=== PATIENT | female | born 1940 | race Caucasian/White ===

== ENCOUNTER 2025-08-12 08:00 | Outpatient (RCR) | payer MEDICARE, MEDICAID, SELFPAY ==
[2025-08-05 08:45] VITALS: BP 121/102; PULSE 100; RESP 18; TEMP 37.3
--- NOTE | 2025-08-05 10:13 | RAD_ITS ---
PROCEDURE: TIBIA FIBULA 2 VIEWS 08/05/2025 REASON FOR EXAM: WOUND, TRAUMA TECHNIQUE: Procedure Code: RADTF Modality: DX Procedure: TIBIA FIBULA 2 VIEWS Laterality: FINDINGS: No evidence of acute fracture or dislocation. Degenerative changes of the knee and ankle. Diffuse soft tissue edema. RAD/Tibia & Fibula 2 Views IMPRESSION: No acute osseous abnormality. Diffuse edema. Reading Location: [id number]
--- NOTE | 2025-08-06 09:14 | HP.PCM_ITS ---
History of Present Illness Date of Service: 08/05/25 History of Wound: The patient is an 85-year-old female presenting with a wound on the left leg. The wound developed approximately three weeks ago following a fall, which was not initially associated with significant trauma. The patient reports increased swelling and redness in the area, with associated pain. The patient has a history of Chronic Obstructive Pulmonary Disease (COPD) and has been on oxygen intermittently for the past five years. She also has a history of a stroke, which occurred in 1996 due to high blood pressure. ROS: - Cardiovascular: Denies vascular problems requiring intervention - Musculoskeletal: Reports left leg pain and difficulty walking - Neurological: Reports history of stroke Attestation: Documentation on this patient encounter was supported using ambient scribe technology/ voice AI technology. The patient consented to recording for the purpose of documenting the encounter. Provider reviewed content of the generated note prior to signature. PFSH Home Medications ?Medication ?Instructions ?Recorded ?Last Taken ?Type Lactobacillus acidophilus 1 tab PO DAILY 08/05/25 Unkn own History (Acidophilus chewable tablet) albuterol sulfate 2.5 mg/3 mL 1 4X/DAY PRN PRN wheezin g 08/05/25 Unknown History (0.083 %) solution for nebulization albuterol sulfate 90 mcg/actuation inhalation 08/05/25 Unknown History aerosol inhaler alendronate 70 mg tablet 70 mg PO QWEEK 08/05/25 Unkn own History amlodipine 2.5 mg tablet 2.5 mg PO DAILY 08/05/25 Unk nown History aspirin 81 mg tablet,delayed 81 mg PO DAILY 08/05/25 U nknown History release (Adult Low Dose Aspirin) atorvastatin 10 mg tablet 10 mg PO DAILY 08/05/25 Unkn own History calcitriol 0.25 mcg capsule 0.25 mcg PO DAILY 08/05/25 Unknown History calcium carbonate (Antacid 400 mg PO DAILY 08/05/25 Un known History (calcium carbonate)) ciclopirox 8 % topical solution topical 08/05/25 Unkno wn History cranberry extract 500 mg capsule 500 mg PO DAILY 08/05 Unknown History (Cranberry Concentrate) docusate sodium 100 mg capsule 100 mg PO DAILY 5 Unknown History (Colace) doxycycline hyclate 100 mg capsule 100 mg PO BID 08/05 Unknown History empagliflozin 10 mg tablet 10 mg PO DAILY 08/05/25 Unk nown History (Jardiance) furosemide 40 mg tablet 40 mg PO BID 08/05/25 Unknow n History losartan 100 mg tablet 100 mg PO DAILY 08/05/25 Unk nown History metoprolol succinate 25 mg 25 mg PO DAILY 08/05/25 Unk nown History tablet,extended release 24 hr omega-3 fatty acids-fish oil 300 cap PO 08/05/25 Unkno wn History mg-500 mg capsule (Fish Oil) potassium gluconate 595 mg (99 mg) 595 mg PO TID 08/05 Unknown History tablet psyllium (Hydrocil oral powder) 1 tbsp PO DAILY Unknown History tiotropium bromide 18 mcg capsule inhalation 08/05/25 Unknown History with inhalation device (Spiriva with HandiHaler) warfarin 2.5 mg tablet PO 08/05/25 Unknown History warfarin 5 mg tablet PO 08/05/25 Unknown History Allergy/AdvReac Type Severity Reaction Status Date / Time amoxicillin Allergy Unknown PT UNSURE Verified 08/05/25 08:35 OF REACTION bepotastine (From Bepreve) Allergy Unknown PT UNSURE Verified 08/05/25 08:35 OF REACTION carbamazepine (From Tegretol) Allergy Unknown PT UNSURE Verified 08/05/25 08:35 OF REACTION clavulanic acid (From Allergy Unknown PT UNSURE Unverified 08/05/25 08:35 Augmentin) OF REACTION iodine Allergy Unknown PT UNSURE Unverified 08/05/25 08:35 OF REACTION levofloxacin (From Levaquin) Allergy Unknown PT UNSURE Verified 08/05/25 08:35 OF REACTION oxybutynin (From Ditropan) Allergy Unknown PT UNSURE Verified 08/05/25 08:35 OF REACTION oxycodone Allergy Unknown PT UNSURE Verified 08/05/25 08:35 OF REACTION Penicillins Allergy Unknown PT UNSURE Verified 08/05/25 08:35 OF REACTION phenytoin (From Dilantin) Allergy Unknown PT UNSURE Verified 08/05/25 08:35 OF REACTION procaine Allergy Unknown PT UNSURE Verified 08/05/25 08:35 OF REACTION ipratropium (From Atrovent) Allergy PT UNSURE Unverified 08/05/25 08:35 OF REACTION Physical Exam Narrative - Left anterior mason: Small superficial excoriations, partial thickness, approximately 3 x 4 cm - Pitting edema: 2+ - Peripheral pulses: Not palpable, feet warm - Sensation: Intact - Motor function: 5/5 plantar flexion and dorsiflexion Debridement Note Debridement Note Wound debrided: Left lower extremity Laterality: Left Wound Grade/Stage: Stage III Type of Debridement: Excisional debridement Anesthesia Used: 4% Lidocaine Solution Depth: in the subcutaneous layer Percentage of wound debrided: 100 Instrument Used: 7mm curette Tissue Removed: Fibrinous exudate and biofilm Severity: Fat Layer Exposed Amount of bleeding with debridement: Mild Bleeding Controlled with: Compression and gauze Patient tolerated procedure: Patient tolerated procedure well Post-Debridement Measurements and Additional Note: Post-Debridement Measurements/Treatment - Nurse 1 - General Ulcer Assessment Start: 08/05/25 08:36 Freq: Status: Active Protocol: GUERRERO Activity Type Activity Date Activity User E-sign Co-sign Detail Recorded Client Recorded Date Recorded By Document 08/05/25 08:45 CHARLES [id number] 08/05/25 08:51 CHARLES 08/05/25 08:45 ANIBAL Castellano Today's Visit Information Type of service Initial Visit Arrival Mode Ambulatory, Walker Transfer Assistance None Patient Identification Verified (Name & Yes ) Safety Precautions NA Vital Signs Temperature (97.8 F-99.1 F) 99.2 F H Temperature Source Temporal Pulse Rate (60-100) 100 Pulse Location Monitor Respiratory Rate (12-18) 18 Respiratory rate source Observation Blood Pressure (90/60-120/80) 121/102 H Blood Pressure Mean 108 Source Monitor Position Sitting Blood Pressure Location Left Arm History Since Last Visit- (Skip if this is Patient's initial visit) Left Footwear Regular Shoe Right Footwear Regular Shoe Pain Scale: 0-10 Numeric Is Patient Pain Free? No left ant lower leg -Description Sharp -Duration (hours) Acute -Pain Behavior No Change in Behavior -Pain Aggravating Factors Debridement -Alleviating Factors/Interventions Medication, Distraction -Effectiveness of Alleviating Factor/ Moderately Intervention effective - Nurse 1 - General Ulcer Measurement Start: 08/05/25 08:36 Freq: Status: Active Protocol: Activity Type Activity Date Activity User E-sign Co-sign Detail Recorded Client Recorded Date Recorded By Document 08/05/25 08:45 CHARLES [id number] 08/05/25 08:51 08/05/25 08:45 Wound Center Nurse 1 2. left post lower leg cluster -Current Size (cm) - Length 0.5 -Current Size (cm) - Width 1 -Current Size (cm) - Depth 0.1 -Total Square Cm 0.5 -Photo Taken Yes -Exudate Amt Small -Exudate Type Serous -Wound Margin Flat & Intact -Granulation Amt Large (67-100%) -Granulation Quality [place] -Necrosis Amt None Present (0 %) -Structure Exposed N/A -Texture (Maegan-wound Skin Appearance) No Abnormality -Moisture (Maegan-wound Skin Appearance) No Abnormality -Color (Maegan-wound Skin Appearance) Hemosiderin Staining -Temperature (Maegan-wound Skin No Abnormality Appearance) (Pt Warm) -Tenderness on Palpation (Maegan-wound No Skin Appearance) -Ulcer Cleansing Soap and Water -Foul Odor after Cleansing No -Anesthetic Used 5% Lidocaine Gel 1. left ant lower leg cluster -Current Size (cm) - Length 4 -Current Size (cm) - Width 5.5 -Current Size (cm) - Depth 0.1 -Total Square Cm 22.0 -Photo Taken Yes -Exudate Amt Small -Exudate Type Serous -Wound Margin Flat & Intact -Granulation Amt Medium (34-66%) -Granulation Quality [place] -Slough/Fibrin Yes -Necrosis Amt Small (1-33%) -Necrotic Tissue Type Adherent Slough -Structure Exposed N/A -Texture (Maegan-wound Skin Appearance) No Abnormality -Moisture (Maegan-wound Skin Appearance) No Abnormality -Color (Maegan-wound Skin Appearance) Hemosiderin Staining -Temperature (Maegan-wound Skin No Abnormality Appearance) (Pt Warm) -Ulcer Cleansing Soap and Water -Foul Odor after Cleansing No -Anesthetic Used 5% Lidocaine Gel Left Calf (cm) 44.5 Left Ankle (cm) 30.5 WC - Nurse 2 - General Ulcer CM Notes Start: 08/05/25 08:36 Freq: Status: Active Protocol: Activity Type Activity Date Activity User E-sign Co-sign Detail Recorded Client Recorded Date Recorded By Document 08/05/25 09:18 JF [id number] 08/05/25 09:25 [id number] 08/05/25 09:18 Wound Center Nurse 2 2. left post lower leg cluster -Time 09:24 -Correct Patient Yes -Correct Side, Site, Position Yes -Correct Procedure Yes -Procedure Performed Yes -Type of Procedure Debridement -Clinical Debridement Subcutaneous -Tissue Removed Subcutaneous -Post Debridement (cm) - Length 3 -Post Debridement (cm) - Width 4 -Post Debridement (cm) - Depth 0.1 -Total Square (Post) (cm) 12 -Area of Debridement (cm) - Length 3 -Area of Debridement (cm) - Width 4 -Total Square (Area) (cm) 12 -Tunneling No -Undermining/Tunneling No -Circular Undermining No -Wound/Ulcer Outcome Not Healed -Ulcer Cleansing Rinsed/ Irrigated with Saline -Foul Odor after Cleansing No -Bioengineered Tissue No -Bleeding Controlled with Pressure -Treatment Response Procedure Tolerated Well -Offloading No -Debridement - Subq, 1st 20sq cm Yes Pain Scale: 0-10 Numeric Is Patient Pain Free? Yes - Nurse 3 - General Ulcer D/C NN Start: 08/05/25 08:36 Freq: Status: Active Protocol: Activity Type Activity Date Activity User E-sign Co-sign Detail Recorded Client Recorded Date Recorded By Document 08/05/25 09:47 CP [id number] 08/05/25 09:48 CP Edit Result 08/05/25 09:47 CP (1) [id number] 08/05/25 09:51 CP (1) 1. left ant lower leg cluster - Ulcer Cleansing => Rinsed/Irrigated => with Saline - Primary Dressing Applied => C Hydrogel - Primary Dressing Covered/Secured with => Dry Gauze & Roll => Gauze - Hydrogel => 0 08/05/25 09:47 Wound Care Center Nurse 3 2. left post lower leg cluster -Ulcer Cleansing Rinsed/ Irrigated with Saline -Primary Dressing Applied C Hydrogel -Primary Dressing Covered/Secured with Dry Gauze & Roll Gauze, Secured with Tape -Hydrogel 0 1. left ant lower leg cluster -Ulcer Cleansing Rinsed/ Irrigated with Saline -Primary Dressing Applied C Hydrogel -Primary Dressing Covered/Secured with Dry Gauze & Roll Gauze -Hydrogel 0 Pain Scale: 0-10 Numeric Is Patient Pain Free? Yes - Visit Discharge Facility Type [facility] Facility Orders Sent Yes Imaging Radiology Impression Tibia/Fibula X-Ray 08/05/25 10:13 IMPRESSION: No acute osseous abnormality. Diffuse edema. Reading Location: [facility] Charges/Coding Visit Charges Office Visits / Consults: [id number] OV L3 New 30min Procedures Integumentary [id number]: [id number] Naz subq tissue 20 sq cm/< Assessment/Plan Assessment/Plan (1) Leg wound, left: CODE(S): S81.802A - Unspecified open wound, left lower leg, initial encounter PLAN: Assessment and Plan 85-year-old female with a history of Chronic Obstructive Pulmonary Disease and a past stroke presenting with a wound on the left leg. The wound is characterized by small superficial excoriations and partial thickness, measuring approximately 3 x 4 cm, with associated 2+ pitting edema. The absence of palpable peripheral pulses raises concerns about vascular insufficiency, although the feet remain warm and sensation is intact. 1. Wound On Left Leg The plan includes obtaining an x-ray of the left leg to assess for any underlying bony abnormalities. Additionally, an ankle-brachial index (REJI) and venous Doppler studies are recommended to evaluate vascular status before considering compression therapy. Hydrogel application is advised to promote wound healing, and follow-up in one week is planned to reassess the condition and review diagnostic results. 2. Chronic Obstructive Pulmonary Disease (Copd) The patient has been on intermittent oxygen therapy for the past five years, indicating a need for ongoing management of COPD symptoms. PLAN: Plan - Apply hydrogel to the wound as directed to aid healing. - Attend follow-up appointment in one week for reassessment and review of test results. - Report any increase in pain, swelling, or signs of infection immediately. X-ray was reviewed and was negative for any acute fracture or malalignment Follow-up ABIs
--- NOTE | 2025-08-06 10:09 | WC ---
PHOTO-LEFT ANT LOWER LEG 08/05/25
--- NOTE | 2025-08-06 10:11 | WC ---
PHOTO-LEFT POST LOWER LEG 08/05/25
--- NOTE | 2025-08-09 13:35 | VDLE_ITS ---
Reason For Study Reason For Study: Bilateral leg edema RIGHT LEFT CFV is compressible, spontaneous, phasic, competent CFV is compressible, spontaneous, phasic, competent, and demonstrates normal augmentation. and demonstrates normal augmentation. FV is compressible, spontaneous, phasic, competent FV is compressible, spontaneous, phasic, competent and demonstrates normal augmentation. and demonstrates normal augmentation. POP V is compressible, spontaneous, phasic, competent POP V is compressible, spontaneous, phasic, competent and demonstrates normal augmentation. and demonstrates normal augmentation. T/P Trunk is compressible. T/P Trunk is compressible. PTV is compressible. PTV is compressible. RT PerV is compressible. LT PerV is compressible. SFJ is competent and measures 0.91 cm. SFJ is competent and measures 0.86 cm. GSV proximal thigh measures 0.59 x 0.59 cm. GSV proximal thigh measures 0.60 x 0.58 cm. GSV above knee is competent. GSV above knee is competent. GSV at knee measures 0.49 x 0.49 cm. GSV at knee measures 0.54 x 0.51 cm. GSV below knee is INCOMPETENT for greater than 0.5 GSV below knee is INCOMPETENT for greater than 0.5 seconds. seconds. ASV at knee is INCOMPETENT for greater than 0.5 ASV at knee is INCOMPETENT for greater than 0.5 seconds and measures 0.44 x 0.43 cm. seconds and measures 0.33 x 0.36 cm. INCOMPETENT furnace reliner noted 21 cm above medial SSV mid calf is competent and measures 0.22 x 0.26 malleolus. cm. SSV mid calf is competent and measures 0.19 x 0.23 cm. Procedure This is a venous duplex using B-mode, color flow and spectral Doppler. Exam performed in department. Patient was scanned in reverse Trendelenburg position during reflux assessment. VL/Venous Duplex US - Marvin Extrem Interpretation Summary Deep veins of the lower extremities are bilaterally patent and compressible seg mentally. There is no evidence of deep vein thrombosis on either side. Valvular competence appears intact within the p roximal deep venous systems bilaterally. The great saphenous veins appear bilaterally patent and compressible segmentall y. Sapheno-femoral junctions are bilaterally competent . The right great saphenous vein appears competent above the knee. The right great saphenous vein appears incompetent below the knee. The left great saphenous vein appears compe tent above the knee. The left great saphenous vein appears incompetent below the knee. Small saphenous veins are pa tent and competent bilaterally. An accessory saphenous vein at right knee level is incompetent. An incompetent per forator vein is noted in the right calf, located 21 centimeters proximal to the right medial malleolus. An incompetent a ccessory saphenous vein is noted at left knee level. Ordering Physician: Juan Mcneill Referring Physician: Jeb Vale Performed By: Maria Fernanda Leger RVT
--- NOTE | 2025-08-09 13:35 | ART_ITS ---
Reason For Study Reason For Study: Ulcer Procedure A bilateral lower extremity continuous wave Doppler with analog waveform analysis,segmental pressures,and ankle brachial indexes without exercise. Left Segmental Pressures Left brachial= 127mmHg. Left low thigh = 140mmHg. Left calf = 96mmHg. Left posterior tibial artery = 107mmHg. Left dorsalis pedis artery = 109mmHg. Left digit = 55 mmHg. The left dorsalis pedis waveforms are biphasic. The left posterior tibial artery waveforms are biphasic. Right Segmental Pressures Right brachial= 130mmHg. Right low thigh = 152mmHg. Right calf = 121mmHg. Right posterior tibial artery = 113mmHg. Right dorsalis pedis artery = 113mmHg. Right digit = 83 mmHg. The right dorsalis pedis waveforms are biphasic. The right posterior tibial artery waveforms are biphasic. Indices The right ankle brachial index by the dorsalis pedis is 0.87. The right ankle brachial index by the posterior tibial artery is 0.87. The right digital-brachial index is 0.64. The left ankle brachial index by the dorsalis pedis is 0.84. The left ankle brachial index by the posterior tibial artery is 0.82. The left digital-brachial index is 0.42. VL/Lower Ext Art Exam w/o Exercis Interpretation Summary Biphasic Doppler waveforms are noted at ankle level bilaterally. Pulse-volume r ecordings appear satisfactory at all levels bilaterally. Resting ankle-brachial indices are moderately diminished bi laterally. The right digital-brachial index is mildly diminished. The left digital-brachial index is moderately dimin ished. There is evidence of mild-moderate arterial occlusive disease in the right lowe r extremity. There is evidence of moderate arterial occlusive disease in the left lower extremity. Ordering Physician: Juan Mcneill Referring Physician: Jeb Vale Performed By: Maria Fernanda Leger RVT
[2025-08-12 08:10] VITALS: BP 135/57; PULSE 82; RESP 20; TEMP 36.1
--- NOTE | 2025-08-12 08:57 | PN.PCM_ITS ---
History of Present Illness Date of Service: 08/12/25 History of Wound: The patient is an 85-year-old female presenting with a wound on the left leg. The wound developed approximately three weeks ago following a fall, which was not initially associated with significant trauma. The patient reports increased swelling and redness in the area, with associated pain. The patient has a history of Chronic Obstructive Pulmonary Disease (COPD) and has been on oxygen intermittently for the past five years. She also has a history of a stroke, which occurred in 1996 due to high blood pressure. ROS: - Cardiovascular: Denies vascular problems requiring intervention - Musculoskeletal: Reports left leg pain and difficulty walking - Neurological: Reports history of stroke Attestation: Documentation on this patient encounter was supported using ambient scribe technology/ voice AI technology. The patient consented to recording for the purpose of documenting the encounter. Provider reviewed content of the generated note prior to signature. Subjective Subjective The patient is an 85-year-old female presenting with peripheral artery disease and a venous stasis ulcer. The patient has a history of diminished blood flow to the foot, as indicated by ankle-brachial indices showing decreased arterial inflow. The venous Doppler was normal, ruling out venous thrombosis. The patient has a venous stasis ulcer on the left anterior leg, measuring approximately 2 by 1.5 centimeters. The ulcer is described as weak, and hydrogel gauze has been used as part of the treatment. The patient reports engaging in chair yoga once a week, which she finds benefic ial. She also mentioned a history of dropping her medication, which may have contributed to the current condition. The patient has significant swelling in her feet, attributed to compression from socks. A mild stretch gallo wrap is recommended to manage the swelling without compromising blood flow. ROS: - Cardiovascular: Reports diminished blood flow to the foot. - Integumentary: Reports a venous stasis ulcer on the left anterior leg. - Musculoskeletal: Reports swelling in the feet. Attestation: Documentation on this patient encounter was supported using ambient scribe technology/ voice AI technology. The patient consented to recording for the purpose of documenting the encounter. Provider reviewed content of the generated note prior to signature. Objective Data Objective Data - Tests and Diagnostics: Ankle-brachial indices showed diminished arterial inflow to the foot. - Tests and Diagnostics: Venous Doppler was normal. 0.42 crys FOR THE LEFT ANKLE Vital Signs: Vital Signs Temp Pulse Resp BP O2 Del Method O2 Flow Rate 96.9 F L 82 20 H 135/57 H Nasal Cannula 2 08/12/25 08:10 08/12/25 08:10 08/12/25 08:10 08/12/25 08:10 08/12/25 08:10 08/12/25 08:10 Oxygen Flow Rate (L/min) 2 Oxygen Delivery Method Nasal Cannula Charges/Coding Procedures Integumentary 111xxx-113xx: 45001 Naz subq tissue 20 sq cm/< Physical Exam Narrative - Cardiovascular: Diminished arterial inflow to the foot noted on ankle-brachial indices. - Peripheral Vascular: Venous Doppler was normal. - Integumentary: Left anterior leg wound measuring approximately 2 by 1.5 centimeters, identified as a venous stasis ulcer. Superficial and subcutaneous - Musculoskeletal: Swelling noted in both feet. Debridement Note Debridement Note Wound debrided: Left anterior leg Laterality: Left Wound Grade/Stage: stage 3 venous stasis ulcer Type of Debridement: Excisional debridement Anesthesia Used: 4% Lidocaine Solution Depth: in the subcutaneous layer Percentage of wound debrided: 100 Instrument Used: 7mm curette Tissue Removed: Fibrinous exudate and biofilm Severity: Limited To Skin Breakdown Amount of bleeding with debridement: Mild Bleeding Controlled with: Compression and gauze Patient tolerated procedure: Patient tolerated procedure well Post-Debridement Measurements and Additional Note: Post-Debridement Measurements/Treatment - Nurse 1 - General Ulcer Assessment Start: 08/05/25 08:36 Freq: Status: Active Protocol: ANIBAL.ANTHONY Activity Type Activity Date Activity User E-sign Co-sign Detail Recorded Client Recorded Date Recorded By Document 08/05/25 08:45 [id number] 08/05/25 08:51 Document 08/12/25 08:10 [id number] 08/12/25 08:14 08/05/25 08/12/25 08:45 08:10 - Today's Visit Information Type of service Initial Visit Follow-up Visit (Physician/FURNISHINGS CONSERVATOR ) Arrival Mode Ambulatory, Ambulatory, Walker Walker Transfer Assistance None Patient Identification Verified (Name & Yes Yes ) Safety Precautions NA Vital Signs Temperature (97.8 F-99.1 F) 99.2 F H 96.9 F L Temperature Source Temporal Temporal Pulse Rate (60-100) 100 82 Pulse Location Monitor Monitor Respiratory Rate (12-18) 18 20 H Respiratory rate source Observation Observation Oxygen Delivery Method Nasal Cannula O2 L/MIN (L/min) 2 Blood Pressure (90/60-120/80) 121/102 H 135/57 H Blood Pressure Mean (mm Hg) 108 83 Source Monitor Monitor Position Sitting Sitting Blood Pressure Location Left Arm Left Arm History Since Last Visit- (Skip if this is Patient's initial visit) Have you changed medications since your No last visit? Any new allergies or adverse reactions No Had a fall/change in ADL's that may No increase risk of falls Signs or symptoms of abuse and/or No neglect since last visit Have you been in the hospital since your No last visit? Has dressing in place as prescribed Yes Has compression in place as prescribed No Has offloadiing in place as prescribed N/A Experienced any changes in pain level or No management Left Footwear Regular Shoe Regular Shoe Right Footwear Regular Shoe Regular Shoe Pain Scale: 0-10 Numeric Is Patient Pain Free? No Yes left ant lower leg -Description Sharp -Duration (hours) Acute -Pain Behavior No Change in Behavior -Pain Aggravating Factors Debridement -Alleviating Factors/Interventions Medication, Distraction -Effectiveness of Alleviating Factor/ Moderately Intervention effective WC - Nurse 1 - General Ulcer Measurement Start: 08/05/25 08:36 Freq: Status: Active Protocol: Activity Type Activity Date Activity User E-sign Co-sign Detail Recorded Client Recorded Date Recorded By Document 08/05/25 08:45 CP [id number] 08/05/25 08:51 CP Document 08/12/25 08:10 [id number] 08/12/25 08:14 08/05/25 08/12/25 08:45 08:10 Wound Center Nurse 1 2. left post lower leg cluster -Current Size (cm) - Length 0.5 -Current Size (cm) - Width 1 -Current Size (cm) - Depth 0.1 -Total Square Cm 0.5 -Photo Taken Yes -Exudate Amt Small -Exudate Type Serous -Wound Margin Flat & Intact -Granulation Amt Large (67-100%) -Granulation Quality [place] -Necrosis Amt None Present (0 %) -Structure Exposed N/A -Texture (Maegan-wound Skin Appearance) No Abnormality -Moisture (Maegan-wound Skin Appearance) No Abnormality -Color (Maegan-wound Skin Appearance) Hemosiderin Staining -Temperature (Maegan-wound Skin No Abnormality Appearance) (Pt Warm) -Tenderness on Palpation (Maegan-wound No Skin Appearance) -Ulcer Cleansing Soap and Water -Foul Odor after Cleansing No -Anesthetic Used 5% Lidocaine Gel 1. left ant lower leg cluster -Current Size (cm) - Length 4 5.0 -Current Size (cm) - Width 5.5 3.8 -Current Size (cm) - Depth 0.1 0.1 -Total Square Cm 22.0 19.00 -Date of Last Picture (Recall this 08/12/25 field) -Photo Taken Yes Yes -Epithelialization Small 1-33% -Tunneling No -Undermining/Tunneling No -Circular Undermining No -Change in Wound Grade/Stage No -Exudate Amt Small Small -Exudate Type Serous Yellow/Green -Wound Margin Flat & Intact Distinct, Outline Attached -Granulation Amt Medium (34-66%) Small (1-33%) -Granulation Quality [place] -Slough/Fibrin Yes No -Necrosis Amt Small (1-33%) -Necrotic Tissue Type Adherent Slough -Structure Exposed N/A -Texture (Maegan-wound Skin Appearance) No Abnormality Assessed -Moisture (Maegan-wound Skin Appearance) No Abnormality Assessed -Color (Maegan-wound Skin Appearance) Hemosiderin Assessed Staining -Temperature (Maegan-wound Skin No Abnormality No Abnormality Appearance) (Pt Warm) (Pt Warm) -Tenderness on Palpation (Maegan-wound No Skin Appearance) -Ulcer Cleansing Soap and Water Rinsed/ Irrigated with Saline -Foul Odor after Cleansing No No -Anesthetic Used 5% Lidocaine 5% Lidocaine Gel Gel Lower Limb Edema Present Yes Left Calf (cm) 44.5 45.8 Left Ankle (cm) 30.5 31.2 - Nurse 2 - General Ulcer CM Notes Start: 08/05/25 08:36 Freq: Status: Active Protocol: Activity Type Activity Date Activity User E-sign Co-sign Detail Recorded Client Recorded Date Recorded By Document 08/05/25 09:18 [email or web address] [id number] 08/05/25 09:25 JF Document 08/12/25 08:32 JF [id number] 08/12/25 08:33 JF 08/05/25 08/12/25 09:18 08:32 Wound Center Nurse 2 2. left post lower leg cluster -Time 09:24 -Correct Patient Yes -Correct Side, Site, Position Yes -Correct Procedure Yes -Procedure Performed Yes -Type of Procedure Debridement -Clinical Debridement Subcutaneous -Tissue Removed Subcutaneous -Post Debridement (cm) - Length 3 -Post Debridement (cm) - Width 4 -Post Debridement (cm) - Depth 0.1 -Total Square (Post) (cm) 12 -Area of Debridement (cm) - Length 3 -Area of Debridement (cm) - Width 4 -Total Square (Area) (cm) 12 -Tunneling No -Undermining/Tunneling No -Circular Undermining No -Wound/Ulcer Outcome Not Healed -Ulcer Cleansing Rinsed/ Irrigated with Saline -Foul Odor after Cleansing No -Bioengineered Tissue No -Bleeding Controlled with Pressure -Treatment Response Procedure Tolerated Well -Offloading No -Debridement - Subq, 1st 20sq cm Yes 1. left ant lower leg cluster -Time 08:32 -Correct Patient Yes -Correct Side, Site, Position Yes -Correct Procedure Yes -Procedure Performed Yes -Type of Procedure Debridement -Clinical Debridement Subcutaneous -Tissue Removed Subcutaneous -Post Debridement (cm) - Length 2.0 -Post Debridement (cm) - Width 1.5 -Post Debridement (cm) - Depth 0.1 -Total Square (Post) (cm) 3.00 -Area of Debridement (cm) - Length 2.0 -Area of Debridement (cm) - Width 1.5 -Total Square (Area) (cm) 3.00 -Tunneling No -Undermining/Tunneling No -Circular Undermining No -Wound/Ulcer Outcome Not Healed -Ulcer Cleansing Rinsed/ Irrigated with Saline -Foul Odor after Cleansing No -Bioengineered Tissue No -Bleeding Controlled with Pressure -Treatment Response Procedure Tolerated Well -Offloading No -Debridement - Subq, 1st 20sq cm Yes Pain Scale: 0-10 Numeric Is Patient Pain Free? Yes Yes WC - Nurse 3 - General Ulcer D/C NN Start: 08/05/25 08:36 Freq: Status: Active Protocol: Activity Type Activity Date Activity User E-sign Co-sign Detail Recorded Client Recorded Date Recorded By Document 08/05/25 09:47 CP [id number] 08/05/25 09:48 CP Edit Result 08/05/25 09:47 CP (1) [id number] 08/05/25 09:51 CP (1) 1. left ant lower leg cluster - Ulcer Cleansing => Rinsed/Irrigated => with Saline - Primary Dressing Applied => C Hydrogel - Primary Dressing Covered/Secured with => Dry Gauze & Roll => Gauze - Hydrogel => 0 08/05/25 09:47 Wound Care Center Nurse 3 2. left post lower leg cluster -Ulcer Cleansing Rinsed/ Irrigated with Saline -Primary Dressing Applied C Hydrogel -Primary Dressing Covered/Secured with Dry Gauze & Roll Gauze, Secured with Tape -Hydrogel 0 1. left ant lower leg cluster -Ulcer Cleansing Rinsed/ Irrigated with Saline -Primary Dressing Applied C Hydrogel -Primary Dressing Covered/Secured with Dry Gauze & Roll Gauze -Hydrogel 0 Pain Scale: 0-10 Numeric Is Patient Pain Free? Yes WC - Visit Discharge Facility Type Alf Facility Orders Sent Yes Assessment/Plan Assessment/Plan (1) Leg wound, left: CODE(S): S81.802A - Unspecified open wound, left lower leg, initial encounter PLAN: Assessment and Plan 85-year-old female with a history of peripheral artery disease presenting with a venous stasis ulcer. The diminished arterial inflow to the foot suggests significant peripheral artery disease, necessitating further vascular evaluation to determine potential interventions to improve blood flow. The venous stasis ulcer on the left anterior leg requires ongoing wound care, including the use of hydrogel gauze, and monitoring for healing progress. The patient's swelling in the feet is likely due to venous insufficiency, and a mild stretch gallo wrap is recommended to manage this without compromising arterial circulation. 1. Peripheral Artery Disease The patient will be referred to vascular surgery for further evaluation and potential intervention to improve blood flow to the foot. Compression therapy will be considered to manage symptoms, ensuring it does not compromise arterial circulation. 2. Venous Stasis Ulcer The ulcer will continue to be treated with hydrogel gauze, and healing progress will be monitored closely. Follow-up in three weeks is planned to assess healing and adjust treatment as necessary. 3. Swelling Of The Feet A mild stretch gallo wrap is recommended to manage swelling without compromising blood flow. The patient will be advised on proper application to ensure effectiveness and safety. PLAN: Plan - Follow up with vascular surgery for evaluation of blood flow to the foot. - Continue using hydrogel gauze on the ulcer and monitor for healing. - Apply a mild stretch gallo wrap to manage foot swelling, ensuring it is not too tight. - Return for follow-up in three weeks to assess healing progress.
--- NOTE | 2025-08-13 10:04 | WC ---
PHOTO-LEFT HONG 08/12/25
== END 2025-08-13 23:59 | disposition home or self-care (01) ==
LOC: WC 08:00
PROVIDERS: PCP Family Medicine; Visit Provider Surgery Plastic and Reconstructive Surgery
DX: I83.028 Varicose veins of left lower extremity with ulcer other part of lower leg (principal); L97.821 Non-pressure chronic ulcer of other part of left lower leg limited to breakdown of skin; J44.9 Chronic obstructive pulmonary disease, unspecified; Z79.899 Other long term (current) drug therapy; M79.89 Other specified soft tissue disorders; Z99.81 Dependence on supplemental oxygen; I73.9 Peripheral vascular disease, unspecified
CPT/HCPCS: 11042; 73590; 93923; 93970; 99203; G0463

== ENCOUNTER 2025-08-26 08:01 | Outpatient (RCR) | payer MEDICARE, MEDICAID, SELFPAY ==
[2025-08-26 08:20] VITALS: BP 159/85; PULSE 83; RESP 22; TEMP 36.6; O2SAT 87
--- NOTE | 2025-08-26 09:58 | PN.PCM_ITS ---
History of Present Illness Date of Service: 08/26/25 History of Wound: The patient is an 85-year-old female presenting with a wound on the left leg. The wound developed approximately three weeks ago following a fall, which was not initially associated with significant trauma. The patient reports increased swelling and redness in the area, with associated pain. The patient has a history of Chronic Obstructive Pulmonary Disease (COPD) and has been on oxygen intermittently for the past five years. She also has a history of a stroke, which occurred in 1996 due to high blood pressure. ROS: - Cardiovascular: Denies vascular problems requiring intervention - Musculoskeletal: Reports left leg pain and difficulty walking - Neurological: Reports history of stroke Attestation: Documentation on this patient encounter was supported using ambient scribe technology/ voice AI technology. The patient consented to recording for the purpose of documenting the encounter. Provider reviewed content of the generated note prior to signature. Subjective Subjective The patient is an 85-year-old female presenting with peripheral artery disease and a venous stasis ulcer. The patient has a history of diminished blood flow to the foot, as indicated by ankle-brachial indices showing decreased arterial inflow. The venous Doppler was normal, ruling out venous thrombosis. The patient has a venous stasis ulcer on the left anterior leg, measuring approximately 2 by 1.5 centimeters. The ulcer is described as weak, and hydrogel gauze has been used as part of the treatment. The patient reports engaging in chair yoga once a week, which she finds benefic ial. She also mentioned a history of dropping her medication, which may have contributed to the current condition. The patient has significant swelling in her feet, attributed to compression from socks. A mild stretch gallo wrap is recommended to manage the swelling without compromising blood flow. ROS: - Cardiovascular: Reports diminished blood flow to the foot. - Integumentary: Reports a venous stasis ulcer on the left anterior leg. - Musculoskeletal: Reports swelling in the feet. Attestation: Documentation on this patient encounter was supported using ambient scribe technology/ voice AI technology. The patient consented to recording for the purpose of documenting the encounter. Provider reviewed content of the generated note prior to signature. 26 Aug 2025: Patient had abnormal ABIs and was sent to vascular surgery. I do not have the documentation as she went to a vascular surgeon in [place], but we are working to get the documentation. She was placed in Tubigrip's from the vascular surgery team as this was determined to be a safe amount of compression for her venous stasis ulcers. She is tolerating them well. Doing well overall today Objective Data Objective Data Vital Signs: Vital Signs Temp Pulse Resp BP Pulse Ox O2 Del Method O2 Flow Rate 98 F 83 22 H 159/85 H 87 Nasal Cannula 2 08/26/25 08:20 08/26/25 08:20 08/26/25 08:20 08/26/25 08:20 08/26/25 08:20 08/26/25 08:20 08/26/25 08:20 Oxygen Flow Rate (L/min) 2 Oxygen Delivery Method Nasal Cannula Charges/Coding Procedures Integumentary 111xxx-113xx: 13348 Naz subq tissue 20 sq cm/< Physical Exam Narrative Venous stasis ulcer on the left anterior mason is just below the dermis (full thickness) in a 1 x 2.5 cm area that is 0.1 cm deep Appears to be healing well Her lower extremity is less swollen status post Tubigrip application Const alert and oriented x3 Resp Resp Narrative: Currently on her home oxygen Upon my respiratory exam, once I had her cough, she was clear to auscultation bilaterally (rhonchi initially) Patient consistently saturating in the low 90s during my exam Effort and Inspection: able to speak in complete sentences Cardio Cardio Narrative: Irregularly irregular rhythm Regular rate Debridement Note Debridement Note Wound debrided: Left anterior mason Laterality: Left Wound Grade/Stage: Full-thickness left anterior mason wound stage III Type of Debridement: Excisional debridement Anesthesia Used: 4% Lidocaine Solution Depth: in the subcutaneous layer Percentage of wound debrided: 100 Instrument Used: 7mm curette Tissue Removed: Biofilm and fibrinous exudate Severity: Limited To Skin Breakdown Amount of bleeding with debridement: Mild Bleeding Controlled with: Compression and gauze Patient tolerated procedure: Patient tolerated procedure well Post-Debridement Measurements and Additional Note: Post-Debridement Measurements/Treatment ANIBAL - Nurse 1 - General Ulcer Assessment Start: 08/26/25 08:15 Freq: Status: Active Protocol: GUERRERO Activity Type Activity Date Activity User E-sign Co-sign Detail Recorded Client Recorded Date Recorded By Document 08/26/25 08:20 AR [id number] 08/26/25 08:27 AR 08/26/25 08:20 - Today's Visit Information Type of service Follow-up Visit (Physician/JUNIOR NET DEVELOPER ) Arrival Mode Ambulatory, Walker Accompanied by self Patient Identification Verified (Name & Yes ) Safety Precautions Fall Prevention Vital Signs Temperature (97.8 F-99.1 F) 98 F Temperature Source Temporal Pulse Rate (60-100) 83 Pulse Location Monitor Respiratory Rate (12-18) 22 H Respiratory rate source Monitor Pulse Oximetry 87 Oxygen Delivery Method Nasal Cannula O2 L/MIN (L/min) 2 Blood Pressure (90/60-120/80) 159/85 H Blood Pressure Mean (mm Hg) 109 Source Monitor Position Semi-Fowlers Blood Pressure Location Left Arm Comment notified physcian of low pulse ox History Since Last Visit- (Skip if this is Patient's initial visit) Has dressing in place as prescribed Yes Has compression in place as prescribed Yes Has offloadiing in place as prescribed Yes Experienced any changes in pain level or Yes management Left Footwear Regular Shoe Right Footwear Regular Shoe Pain Scale: 0-10 Numeric Is Patient Pain Free? No WC - Nurse 1 - General Ulcer Measurement Start: 08/26/25 08:15 Freq: Status: Active Protocol: Activity Type Activity Date Activity User E-sign Co-sign Detail Recorded Client Recorded Date Recorded By Document 08/26/25 08:20 AR [id number] 08/26/25 08:27 AR 08/26/25 08:20 Wound Center Nurse 1 1. left ant lower leg cluster -Current Size (cm) - Length 7 -Current Size (cm) - Width 6 -Current Size (cm) - Depth 0.1 -Total Square Cm 42 -Date of Last Picture (Recall this 08/26/25 field) -Photo Taken Yes -Tunneling No -Undermining/Tunneling No -Circular Undermining No -Exudate Amt Medium -Wound Margin Flat & Intact -Granulation Amt Medium (34-66%) -Granulation Quality [place] -Necrosis Amt Medium (34-66%) -Necrotic Tissue Type Adherent Slough -Texture (Maegan-wound Skin Appearance) Assessed, Localized Edema -Moisture (Maegan-wound Skin Appearance) Assessed -Color (Maegan-wound Skin Appearance) Assessed, Erythema -Temperature (Maegan-wound Skin No Abnormality Appearance) (Pt Warm) -Tenderness on Palpation (Maegan-wound No Skin Appearance) -Ulcer Cleansing Soap and Water -Anesthetic Used 5% Lidocaine Gel WC - Nurse 2 - General Ulcer CM Notes Start: 08/26/25 08:15 Freq: Status: Active Protocol: Activity Type Activity Date Activity User E-sign Co-sign Detail Recorded Client Recorded Date Recorded By Document 08/26/25 08:44 [email or web address] [id number] 08/26/25 08:45 JF 08/26/25 08:44 Wound Center Nurse 2 -Time 08:44 -Correct Patient Yes -Correct Side, Site, Position Yes -Correct Procedure Yes -Procedure Performed Yes -Type of Procedure Debridement -Clinical Debridement Subcutaneous -Tissue Removed Subcutaneous -Post Debridement (cm) - Length 1.0 -Post Debridement (cm) - Width 2.5 -Post Debridement (cm) - Depth 0.1 -Total Square (Post) (cm) 2.50 -Area of Debridement (cm) - Length 1.0 -Area of Debridement (cm) - Width 2.5 -Total Square (Area) (cm) 2.50 -Tunneling No -Undermining/Tunneling No -Circular Undermining No -Wound/Ulcer Outcome Not Healed -Ulcer Cleansing Rinsed/ Irrigated with Saline -Foul Odor after Cleansing No -Bioengineered Tissue No -Bleeding Controlled with Pressure -Treatment Response Procedure Not Tolerated Well -Offloading No -Debridement - Subq, 1st 20sq cm Yes Pain Scale: 0-10 Numeric Is Patient Pain Free? Yes - Nurse 3 - General Ulcer D/C NN Start: 08/26/25 08:15 Freq: Status: Active Protocol: Activity Type Activity Date Activity User E-sign Co-sign Detail Recorded Client Recorded Date Recorded By Document 08/26/25 08:52 ERIN [id number] 08/26/25 08:53 DS 08/26/25 08:52 Wound Care Center Nurse 3 1. left ant lower leg cluster -Primary Dressing Applied Fibracol Plus 4x4 -Primary Dressing Covered/Secured with Dry Gauze, Secured with Tape -Fibracol Plus 4x4 1 BLE -Tubular Bandage Single Layer -Size of Tubigrip Used Size E -Size E ($) 1 Pain Scale: 0-10 Numeric Is Patient Pain Free? Yes WC - Visit Discharge Discharge Condition Stable Ambulatory Status Ambulatory, Walker Transportation transportation Assessment/Plan Assessment/Plan (1) Leg wound, left: CODE(S): S81.802A - Unspecified open wound, left lower leg, initial encounter PLAN: Agree with compression per vascular surgery Continue typical daily to the anterior left mason venous stasis ulcer Follow-up with me in 3 weeks
== END 2025-09-13 23:59 | disposition home or self-care (01) ==
LOC: WC 08:01
PROVIDERS: PCP Family Medicine; Visit Provider Surgery Plastic and Reconstructive Surgery
DX: I83.028 Varicose veins of left lower extremity with ulcer other part of lower leg (principal); L97.821 Non-pressure chronic ulcer of other part of left lower leg limited to breakdown of skin; J44.9 Chronic obstructive pulmonary disease, unspecified; M79.89 Other specified soft tissue disorders; Z99.81 Dependence on supplemental oxygen; I73.9 Peripheral vascular disease, unspecified
CPT/HCPCS: 11042

== ENCOUNTER 2025-10-21 14:34 | Emergency (ER) | payer MEDICARE, MEDICAID, SELFPAY ==
[2025-10-21 14:36] VITALS: BP 142/122; PULSE 109; RESP 23; TEMP 36.4; O2SAT 92; BMI 28.7
--- NOTE | 2025-10-21 15:10 | RAD_ITS ---
PROCEDURE: CHEST 1 VIEW (PORTABLE) 10/21/2025 REASON FOR EXAM: COPD TECHNIQUE: Frontal view of the chest. COMPARISON: None FINDINGS: Scattered reticular opacities may reflect pulmonary edema versus atypical pneumonia. Pulmonary emphysema. No focal consolidations. No pleural effusion or pneumothorax. Large cardiomegaly. No acute fractures. RAD/Chest 1 View (Portable) IMPRESSION: Scattered reticular opacities may reflect pulmonary edema versus atypical pneum onia. Pulmonary emphysema. Large cardiomegaly. Reading Location: [id number]
--- NOTE | 2025-10-21 15:11 | EKG12_ITS ---
Test Reason : SOB Blood Pressure : */* mmHG Vent. Rate : 109 BPM Atrial Rate : * BPM P-R Int : * ms QRS Dur : 80 ms QT Int : 320 ms P-R-T Axes : * 68 83 degrees QTcB Int : 430 ms Atrial fibrillation with rapid ventricular response Septal infarct , age undetermined Abnormal ECG Baseline wander/artifact Confirmed by Karel Rowell ([id number]), clinical editor GOPAL MAYA ([id number]) on 10/23/2025 11:33:04 AM Referred By: RADHA Confirmed By: Karel Rowell
[2025-10-21 15:22] VITALS: O2SAT 92
--- NOTE | 2025-10-21 15:29 | ED.VIS.DYS ---
HPI History of Present Illness Chief Complaint: Shortness of Breath Informant: patient, EMS and SNF Narrative Narrative: 85-year-old female presenting to the emergency room with the chief complaint of hypoxia. Patient is at a facility in [place]. She was coming to the [place] wound care clinic today for an evaluation of wounds on her leg. She has a history of COPD and is oxygen dependent normally at about 2 L. Apparently when she got to the wound care clinic she did need not have oxygen on. She was reportedly in the 70s. There is reported that she was a COVID-patient but she had COVID 2 weeks ago and has subsequently recovered. Patient states that the tank that she had when empty. It was reported to me that the wound care clinic stated that she did not have a tank with her. The facility that she is coming from those states that they sent her to the wound care clinic with a tank. Patient has no current complaints of shortness of breath significant change in cough fever. She states that she just would like to speak to the wound care doctor about the wound in her leg. [facility] Medical History (Updated 10/21/25 @ 15:46 by Francisca Muse) Depression Hypertension Diastolic CHF Afib Home Medications ?Medication ?Instructions ?Recorded ?Last Taken ?Type Lactobacillus acidophilus 1 tab PO DAILY 08/05/25 Unknown History (Acidophilus chewable tablet) albuterol sulfate 2.5 mg/3 mL 1 4X/DAY PRN PRN wheezing 08/05/25 Unknown History (0.083 %) solution for nebulization albuterol sulfate 90 mcg/actuation inhalation 08/05/25 Unknown History aerosol inhaler alendronate 70 mg tablet 70 mg PO QWEEK 08/05/25 Unknown History amlodipine 2.5 mg tablet 2.5 mg PO DAILY 08/05/25 Unknown History aspirin 81 mg tablet,delayed 81 mg PO DAILY 08/05/25 Unknown History release (Adult Low Dose Aspirin) atorvastatin 10 mg tablet 10 mg PO DAILY 08/05/25 Unknown History calcitriol 0.25 mcg capsule 0.25 mcg PO DAILY 08/05/25 Unknown History calcium carbonate (Antacid 400 mg PO DAILY 08/05/25 Unknown History (calcium carbonate)) ciclopirox 8 % topical solution topical 08/05/25 Unknown History cranberry extract 500 mg capsule 500 mg PO DAILY 08/05/25 Unknown History (Cranberry Concentrate) docusate sodium 100 mg capsule 100 mg PO DAILY 08/05/25 Unknown History (Colace) doxycycline hyclate 100 mg capsule 100 mg PO BID 08/05/25 Unknown History empagliflozin 10 mg tablet 10 mg PO DAILY 08/05/25 Unknown History (Jardiance) furosemide 40 mg tablet 40 mg PO BID 08/05/25 Unknown History losartan 100 mg tablet 100 mg PO DAILY 08/05/25 Unknown History metoprolol succinate 25 mg 25 mg PO DAILY 08/05/25 Unknown History tablet,extended release 24 hr potassium gluconate 595 mg (99 mg) 595 mg PO TID 08/05/25 Unknown History tablet psyllium (Hydrocil oral powder) 1 tbsp PO DAILY 08/05/25 Unknown History tiotropium bromide 18 mcg capsule inhalation 08/05/25 Unknown History with inhalation device (Spiriva with HandiHaler) warfarin 2.5 mg tablet PO 08/05/25 Unknown History warfarin 5 mg tablet PO 08/05/25 Unknown History Fish Oil 2 cap PO DAILY 10/21/25 Unknown History acetaminophen 500 mg capsule 1,000 mg PO Q8H PRN fever or pain 10/21/25 Unknown History carboxymethylcellulose sodium 0.5 1 drp EACH EYE TID 10/21/25 Unknown History % eye drops (Lubricant Eye Drops) fexofenadine 60 mg tablet (Jocelyn 60 mg PO Q12H PRN congestion 10/21/25 Unknown History Allergy) fluticasone propionate 50 2 spray intranasal DAILY 10/21/25 Unknown History mcg/actuation nasal spray,suspension (Allergy Relief (fluticasone)) glycerin (adult) (Fleet Glycerin 1 supp [place] DAILY PRN constipation 10/21/25 Unknown History (Adult) rectal suppository) loperamide 2 mg tablet (Diamode) 2 mg PO DAILY PRN loose stool 10/21/25 Unknown History multivitamin (Daily Multi-Vitamin 1 tab PO DAILY 10/21/25 10/21/25 History tablet) ondansetron 4 mg disintegrating 4 mg PO Q8H PRN nausea and vomiting 10/21/25 Unknown History tablet propylene glycol 0.6 % eye drops 1 drp EACH EYE TID 10/21/25 Unknown History (Lubricant Eye (propylene glycol)) Allergy/AdvReac Type Severity Reaction Status Date / Time amoxicillin Allergy Unknown PT UNSURE Verified 10/21/25 14:40 OF REACTION bepotastine (From Bepreve) Allergy Unknown PT UNSURE Verified 10/21/25 14:40 OF REACTION carbamazepine (From Tegretol) Allergy Unknown PT UNSURE Verified 10/21/25 14:40 OF REACTION clavulanic acid (From Allergy Unknown PT UNSURE Verified 10/21/25 14:40 Augmentin) OF REACTION iodine Allergy Unknown PT UNSURE Verified 10/21/25 14:40 OF REACTION levofloxacin (From Levaquin) Allergy Unknown PT UNSURE Verified 10/21/25 14:40 OF REACTION oxybutynin (From Ditropan) Allergy Unknown PT UNSURE Verified 10/21/25 14:40 OF REACTION oxycodone Allergy Unknown PT UNSURE Verified 10/21/25 14:40 OF REACTION Penicillins Allergy Unknown PT UNSURE Verified 10/21/25 14:40 OF REACTION phenytoin (From Dilantin) Allergy Unknown PT UNSURE Verified 10/21/25 14:40 OF REACTION procaine Allergy Unknown PT UNSURE Verified 10/21/25 14:40 OF REACTION ipratropium (From Atrovent) Allergy PT UNSURE Verified 10/21/25 14:40 OF REACTION Family History no significant family his Surgical History no surgical history Social History Smoking Status: Former smoker ROS ROS ED Constitutional Constitutional ED: Denies chills or weight loss Eyes Eyes: Denies change in vision or diplopia ENT ENT ED: Denies ear pain, rhinorrhea or sore throat Cardiovascular Cardiovascular: Denies chest pain, orthopnea, palpitations or racing heartbeat Respiratory/Chest Respiratory/Chest: Denies cough, dyspnea or orthopnea Gastrointestinal Gastrointestinal: Denies abdominal pain, diarrhea, nausea or vomiting Genitourinary Genitourinary ED: Denies dysuria, hematuria or urinary frequency Musculoskeletal Musculoskeletal: Denies arthralgias or myalgias Integumentary Reports other Details: Chronic wounds right leg ; Denies abscess or rash Neurologic Neurologic: Denies headache(s) or weakness Psychiatric Psychiatric: Denies anxiety, depression, suicidal ideation or suicidal thoughts Endocrine Endocrinology: Denies polydipsia, polyphagia or polyuria Allergic/Immunologic Allergic/Immunologic ED: Denies mouth swelling, tongue swelling or urticaria EXAM Physical Exam Const Vital Signs: 10/21/25 14:36 10/21/25 15:14 10/21/25 15:22 Temperature 97.6 F L Temperature Source Oral Pulse Rate 109 H Respiratory Rate 23 H Respiratory Effort Short of Breath Respiratory Depth Normal Respiratory Pattern Normal Blood Pressure 142/122 H Blood Pressure Mean 128 Pulse Ox 92 Oxygen Delivery Method Room Air Nasal Cannula Room Air Oxygen Flow Rate (L/min) 2 10/21/25 15:35 Temperature Temperature Source Pulse Rate 92 Respiratory Rate 18 Respiratory Effort Respiratory Depth Respiratory Pattern Blood Pressure 126/105 H Blood Pressure Mean 112 Pulse Ox 98 Oxygen Delivery Method Nasal Cannula Oxygen Flow Rate (L/min) 2 Positive well nourished and well developed General Appearance ED: well developed and NAD HEENT Reports normocephalic, head/scalp atraumatic and moist mucous membranes Eyes PERRL and EOMs intact bilaterally Neck no lymphadenopathy, supple and no JVD Resp normal respiratory effort and clear to auscultation bilaterally Resp Narrative: Patient has blue nailbeds. Cardio regular rate, regular rhythm and no murmurs GI normal to inspection, nondistended, normoactive bowel sounds and non-tender Palpation: soft Back/Spine no CVA tenderness and normal ROM Extremity Extremity Narrative: Right leg is wrapped to cover the chronic wounds. Neuro oriented x3 and CN's II-XII intact bilaterally Sensorium / Orientation: alert Motor Exam: strength 5/5 throughout Psych mental status grossly normal Mood & Affect: Negative for depressed or tearful Skin no rashes or lesions noted and no wounds MDM MDM MDM Narrative Medical decision making narrative: Differential diagnosis includes COPD with oxygen dependency, lack of supplemental oxygen, pulmonary embolism pneumonia cardiac dysrhythmia Patient's EKG was obtained through nursing protocol shows atrial fibrillation at a rate of 109. She has subsequently come down to the 90s and is still in A-fib which she does have a history of. Patient is also reportedly anticoagulated so I doubt pulmonary embolism. My independent interpretation of the chest x-ray is chronic changes with cardiomegaly. Patient states she does not feel any different than baseline she just needed her oxygen hooked up. Patient requesting to be discharged home which I think is reasonable. History & Record Review Discussion w/independent historian: Patient Radiography Diagnostic Testing: Clinical Impression(s) from Imaging Studies Chest X-Ray 10/21/25 15:10 IMPRESSION: Scattered reticular opacities may reflect pulmonary edema versus atypical pneumonia. Pulmonary emphysema. Large cardiomegaly. Reading Location: [facility] Discharge Plan Triage Chief Complaint: Shortness of Breath ED Provider: Alton Buck Dx/Rx/DC Orders Clinical Impression: COPD (chronic obstructive pulmonary disease), Acute and chronic respiratory failure with hypoxia, Dependence on continuous supplemental oxygen Prescriptions: No Action Fish Oil 645 mg capsule 2 cap PO DAILY fluticasone propionate [Allergy Relief (fluticasone)] 50 mcg/actuation spray,suspension 2 spray intranasal DAILY Rx Instructions: administer into each nostril multivitamin [Daily Multi-Vitamin] Tablet 1 tab PO DAILY carboxymethylcellulose sodium [Lubricant Eye Drops] 0.5 % drops 1 drp EACH EYE TID Lubricant Eye (propyl glycol) 0.6 % drops 1 drp EACH EYE TID fexofenadine [Jocelyn Allergy] 60 mg tablet 60 mg PO Q12H PRN (Reason: congestion) glycerin (adult) [Fleet Glycerin (Adult)] Suppository 1 supp AK DAILY PRN (Reason: constipation) loperamide [Diamode] 2 mg tablet 2 mg PO DAILY PRN (Reason: loose stool) ondansetron 4 mg tablet,disintegrating 4 mg PO Q8H PRN (Reason: nausea and vomiting) acetaminophen 500 mg capsule 1,000 mg PO Q8H PRN (Reason: fever or pain) furosemide 40 mg tablet 40 mg PO BID doxycycline hyclate 100 mg capsule 100 mg PO BID albuterol sulfate 2.5 mg /3 mL (0.083 %) solution for nebulization 2.5 mg continuous nebulization Q6H PRN (Reason: wheezing) atorvastatin 10 mg tablet 10 mg PO DAILY alendronate 70 mg tablet 70 mg PO QWEEK warfarin 2.5 mg tablet 2.5 mg PO MOFR amlodipine 2.5 mg tablet 2.5 mg PO DAILY ciclopirox 8 % solution 1 applic topical BID warfarin 5 mg tablet 5 mg PO SUTUWETHSA metoprolol succinate 25 mg tablet extended release 24 hr 25 mg PO DAILY albuterol sulfate 90 mcg/actuation HFA aerosol inhaler 2 puff inhalation Q4H PRN (Reason: shortness of breath or wheezing) losartan 100 mg tablet 100 mg PO DAILY calcitriol 0.25 mcg capsule 0.25 mcg PO DAILY tiotropium bromide [Spiriva with HandiHaler] 18 mcg capsule, w/inhalation device 1 cap INHALATION DAILY Patient Comments: [NO ORIGINAL SIG] Jardiance 10 mg tablet 10 mg PO DAILY aspirin [Adult Low Dose Aspirin] 81 mg tablet,delayed release (DR/EC) 81 mg PO DAILY Acidophilus Tablet,Chewable 1 tab PO DAILY calcium carbonate [Antacid (calcium carbonate)] 200 mg calcium (500 mg) tablet,chewable 400 mg PO DAILY cranberry extract [Cranberry Concentrate] 500 mg capsule 500 mg PO DAILY Rx Instructions: administer with a meal docusate sodium [Colace] 100 mg capsule 100 mg PO DAILY potassium gluconate 595 mg (99 mg) tablet 595 mg PO TID Hydrocil Powder 1 tbsp PO DAILY Rx Instructions: mix into at least 8 oz of water or juice before administering Primary Care Provider: Jeb Vale Referrals: Jeb Vale MD [Primary Care Provider, Family Practice] Print Language: Albanian
[2025-10-21 15:35] VITALS: BP 126/105; PULSE 92; RESP 18; O2SAT 98
[2025-10-21 18:00] VITALS: PULSE 100; RESP 24; O2SAT 90
--- NOTE | 2025-10-21 19:22 | ED.RN ---
Report called to Lindy morfin
== END 2025-10-21 19:22 | disposition home or self-care (01) ==
PROVIDERS: Emergency Provider Emergency Medicine; PCP Family Medicine; Visit Provider Emergency Medicine
DX: J44.9 Chronic obstructive pulmonary disease, unspecified (principal); J96.21 Acute and chronic respiratory failure with hypoxia; I11.0 Hypertensive heart disease with heart failure; I50.9 Heart failure, unspecified; Z99.81 Dependence on supplemental oxygen; Z87.891 Personal history of nicotine dependence; Z79.51 Long term (current) use of inhaled steroids; Z79.82 Long term (current) use of aspirin; Z79.899 Other long term (current) drug therapy; Z79.01 Long term (current) use of anticoagulants
CPT/HCPCS: 71045; 93005; 99284